=== PATIENT | female | born 1990 | race African-American/Black ===

== ENCOUNTER 2024-01-21 20:13 | Emergency (ER) | payer SELFPAY ==
--- NOTE | ~2024-01-21 | US_ITS ---
EXAMINATION: US abdomen limited DATE: 01/21/2024 21:31 INDICATION: RUQ pain TECHNIQUE: Multiple grayscale and Doppler ultrasound images of limited portions of the abdomen were o btained. COMPARISON: None available. FINDINGS: The pancreas was obscured by bowel gas. The liver is mildly enlarged with increased echogen icity and normal echotexture. No surface nodularity. Normal hepatopetal flow in the main portal vein. The gallbladder is normal with no abnormal wall thickening, pericholecystic fluid or stones. The com mon bile duct measures 4 mm. There was no sonographic Sanchez sign. IMPRESSION: Mild hepatomegaly. Echogenic liver, most commonly due to steatosis but also can be seen with hepatitis and fibrosis. Pancreas not visualized. Otherwise normal right upper quadrant ultrasound findings. Reviewed, dictated and finalized at location K. IMPRESSION: Mild hepatomegaly. Echogenic liver, most commonly due to steatosis but also can be seen with hepat itis and fibrosis. Pancreas not visualized. Otherwise normal right upper quadrant ultrasound findings.
--- NOTE | ~2024-01-21 | CT_ITS ---
EXAMINATION: CT abdomen pelvis w con DATE: 01/21/2024 22:06 INDICATION: RUQ/ RLQ pain TECHNIQUE: Computed tomography (CT) of the abdomen and pelvis was performed with 100 mL Omnipaque-350 intravenous contrast. Automated exposure control and iterative reconstruction technique were employe d. The dose-length product was 569.19 mGy-cm. COMPARISON: None. FINDINGS: Lower thorax: Unremarkable Liver: Normal. Biliary/Gallbladder: Gallbladder is normal. No bile duct dilation. Pancreas: No mass or duct dilation. Spleen: Normal. Adrenals:No mass. Kidneys: No suspicious mass, obstructing stone, or hydronephrosis. GI tract: Moderate distal esophageal and gastric wall edema No small or large bowel dilation. Normal appendix. Mesentery/Peritoneum: No ascites, mass, or free air. Retroperitoneum: No mass. Pelvis: Calcified uterine fibroid. Corpus luteal cyst on the right. Small fluid density structure ass ociated with the right ovary. Pelvic organs are otherwise within normal limits. Soft Tissues: Soft tissues and body wall unremarkable. Bones: No acute osseous finding. IMPRESSION: Moderate esophagitis/gastritis. Mild right hydrosalpinx. Reviewed, dictated and finalized at location K.
[2024-01-21 20:22] VITALS: BP 136/95; PULSE 88; RESP 16; TEMP 36.7; O2SAT 100
--- NOTE | 2024-01-21 20:25 | ED.ABDPAIN ---
HPI - Abdominal Pain General Chief Complaint: Abdominal Pain <Kulwant Ayers MD - Last Filed: 01/22/24 19:14> Stated Complaint: abd pain <Kulwant Ayers MD - Last Filed: 01/22/24 19:14> Time Seen by Provider: 01/21/24 20:16 <Kulwant Ayers MD - Last Filed: 01/22/24 19:14> History of Present Illness HPI narrative: 33-year-old female presenting to the emergency department for evaluation right upper quadrant pain that started on Thursday night after eating a meal of non shows. Patient states he has had persistent nausea and right upper quadrant abdominal pain. Patient has been taking Tums and drinking fluid but states she still has persistent pain. Patient denies any prior history of gallbladder disease. Patient denies any prior history of abdominal surgeries other than a . Patient has no prior history of ovarian cyst. <Kulwant Ayers MD - Last Filed: 01/22/24 19:14> Related Data Home Medications: Home Medications Medication Instructions Recorded Confirmed amlodipine 5 mg tablet 5 mg PO DAILY 01/21/24 01/21/24 omalizumab 150 mg/mL subcutaneous 150 mg subcut MONTHLY 01/21/24 01/21/24 syringe <Kulwant Ayers MD - Last Filed: 01/22/24 19:14> Allergies/Adverse Reactions: Allergies Allergy/AdvReac Type Severity Reaction Status Date / Time No Known Allergies Allergy Verified 01/21/24 20:29 <Kulwant Ayers MD - Last Filed: 01/22/24 19:14> Review of Systems Review of Systems: All systems reviewed & are unremarkable except as noted in HPI and below <Kulwant Ayers MD - Last Filed: 01/22/24 19:14> Exam Narrative: APPEARANCE: Well appearing, no pain, no distress, well-nourished. HEAD: normocephalic, atraumatic. EYES: PERRLA/EOMI, conjunctivae clear. NOSE: Normal no drainage EARS:TMS clear with good light reflex. THROAT: Pharynx clear, no exudate. NECK: Supple. No adenopathy, no masses. RESPIRATORY: Airway patent, respirations nonlabored. Clear to auscultation bilaterally, no rales, rhonchi, wheezing. CARDIOVASCULAR: Regular rate and rhythm without murmurs rubs or gallops. ABDOMINAL: Soft, nontender, nondistended, normal bowel sounds MUSCULOSKELETAL: Moves all extremities. Strength/ROM intact, No edema, No calf tenderness. NEURO: Alert. Cranial nerves II through XII intact. SKIN: Warm, dry. Normal Color <Kulwant Ayers MD - Last Filed: 01/22/24 19:14> Course Course Emergency Course: patient was signed out pending the results of the CT scan. CT scan showed FINDINGS: Lower thorax: Unremarkable Liver: Normal.? Biliary/Gallbladder: Gallbladder is normal. No bile duct dilation. Pancreas: No mass or duct dilation. Spleen: Normal. Adrenals:No mass. Kidneys: No suspicious mass, obstructing stone, or hydronephrosis. GI tract: Moderate distal esophageal and gastric wall edema No small or large bowel dilation. Normal appendix. Mesentery/Peritoneum: No ascites, mass, or free air. Retroperitoneum: No mass. Pelvis: Calcified uterine fibroid. Corpus luteal cyst on the right. Small fluid density structure associated with the right ovary. Pelvic organs are otherwise within normal limits. Soft Tissues: Soft tissues and body wall unremarkable. Bones:? No acute osseous finding. IMPRESSION: Moderate esophagitis/gastritis. Mild right hydrosalpinx. patient does have right-sided abdominal pain most likely this is secondary to the corpus luteal cyst or also ovarian cyst. The patient was instructed to follow-up with her primary care provider at this time there was no immediate surgical intervention <Juan Pope MD - Last Filed: 01/21/24 23:11> Vital Signs Vital signs: Vital Signs Temperature 98.1 F 01/21/24 20:22 Pulse Rate 88 01/21/24 20:22 Respiratory Rate 16 01/21/24 20:22 Blood Pressure 136/95 H 01/21/24 20:22 Pulse Oximetry 100 01/21/24 20:22 Oxygen Delivery Room Air 01/21/24 20:22 Temperature
[2024-01-21 20:30] LABS: Appearance Urine Clear (Clear); Bilirubin Urine Negative (Negative); Blood Urine Negative (Negative); Color Urine Yellow (Yellow); Glucose Urine UA Negative (Negative); Ketones Urine Negative (Negative); Leukocyte Esterase Ur Negative LEU/UL (Negative); Nitrate Urine Negative (Negative); Protein Urine Negative (Negative); Urobilinogen Urine 0.2 mg/dL (<2.0); pH Urine 6.5 (5.0-9.0)
[2024-01-21 20:31] LABS: Specific Grav Ur 1.003 (1.001-1.035)
[2024-01-21 20:32] LABS: Add Urine Microscopic? NO
[2024-01-21] MEDS: HYDROmorphone HCL INJ (*CRX) 1 MG/ML SYR 0.5 MG IV PUSH (20:34)
[2024-01-21] MEDS: SODIUM CHLORIDE 0.9% IV 1,000 ML 999 ML IV CONT (20:34)
[2024-01-21 20:38] LABS: Basophils Percent Auto 0.3 % (0.2-1.2); Eosinophils Absolute Auto 0.2 K/mm3 (0-0.3); Eosinophils Percent Auto 3.4 % (0-4.4); Hematocrit 38.5 % (37.0-47.0); Hemoglobin 12.6 g/dL (12.0-15.0); Immature Granulocyte Absolute 0.01 K/mm3 (0.00-0.031); Immature Granulocyte Percent A 0.2 % (0-0.5); Lymphocytes Absolute Auto 2.59 K/mm3 (0.9-3.2); Lymphocytes Percent Auto 44.1 % (18.3-44.2); Mean Corpuscular HGB Conc 32.7 g/dl (32-36); Mean Corpuscular Volume 94.8 fl (80-100); Mean Platelet Volume 9.9 fl (7.4-10.4); Monocytes Absolute Auto 0.6 K/mm3 (0.1-0.6); Monocytes Percent Auto 9.4 % (2.6-8.5); Neutrophils Absolute Auto 2.5 K/mm3 (1.3-6.7); Neutrophils Percent Auto 42.6 % (45.5-73.1); Platelet Count Result 273 k/mm3 (150-375); Red Blood Count 4.06 M/mm3 (4.2-5.4); Red Cell Distribution Width 12.4 % (11.5-14.5); White Blood Count 5.9 K/mm3 (4.5-10.0)
[2024-01-21 20:50] LABS: Alanine Aminotransferase 31 U/L (6-35); Albumin Level 4.7 g/dL (3.5-5.1); Alkaline Phosphatase 69 U/L (38-126); Anion Gap 9 mmol/L (4-12); Aspartate Amino Transferase 25 U/L (14-36); Bilirubin,Total 0.5 mg/dL (0.2-1.3); Blood Urea Nitrogen 9 mg/dL (7-17); Carbon Dioxide 26 mmol/L (22-30); Chloride 103 mmol/L (98-107); Estimated CRCL calculation 125 ml/min; Estimated Glomerular Filt Rate > 60; Glucose 71 mg/dL (65-110); Lipase 94 U/L (23-300); Potassium 3.7 mmol/L (3.4-5.0); Sodium 138 mmol/L (137-145)
[2024-01-21 21:11] VITALS: BP 132/96; PULSE 71; RESP 16; O2SAT 100
[2024-01-21 23:35] VITALS: BP 136/90; PULSE 78; RESP 13; O2SAT 100
== END 2024-01-21 23:35 | disposition home or self-care (01) ==
PROVIDERS: Emergency Medicine; Emergency Provider Emergency Medicine
DX: N83.11 Corpus luteum cyst of right ovary (principal); N70.11 Chronic salpingitis; K20.90 Esophagitis, unspecified without bleeding; K29.70 Gastritis, unspecified, without bleeding
CPT/HCPCS: 36415; 74177; 76705; 80053; 81003; 81025; 83690; 85025; 96361; 96374; 99284; J1170; J7030; Q9967